=== PATIENT | male | born 1945 | race African-American/Black ===

== ENCOUNTER 2021-07-11 13:58 | Inpatient (IN) | payer MEDICARE, BC ==
[2021-07-11] VITALS (18 sets, daily range): BP systolic 101–141; BP diastolic 60–87
[~2021-07-11] VITALS: Ht 188 cm; Wt 83.0 kg
[2021-07-11] MEDS ORDERED: SODIUM CHLORIDE 0.9% 1,000 ML IV ONE (14:30)
[2021-07-11] MEDS ORDERED: NICARDIPINE 40MG/200ML PREMIX 200 ML IV STA (14:51)
[2021-07-11] MEDS ORDERED: DEXAMETHASONE 4MG/ML 1ML VIAL IV ONE (15:00)
[2021-07-11] MEDS ORDERED: MANNITOL 20% (20GM/100ML) BAG 500ML PREMIX IV ONE (15:00)
[2021-07-11] MEDS ORDERED: LABETALOL 5MG/ML SYR 20 MG/4 ML SYRINGE IV ONE (15:00)
[2021-07-11 15:03] LABS: BASOPHILS % 0.1 % (0.0-2.0); HEMATOCRIT. 43.6 % (42.0-52.0); HEMOGLOBIN. 14.8 g/dL (14.0-18.0); LYMPHOCYTES % 7.6 % (20.0-50.0); MEAN CORPUSCULAR HEMOGLOBIN 32.4 pg (28.0-32.0); MEAN CORPUSCULAR VOLUME 95.4 fL (80.0-94.0); MEAN PLATELET VOLUME 8.9 fl (7.4-10.4); MONOCYTES % 5.5 % (2.0-8.0); NEUTROPHILS % 86.8 % (40.0-76.0); PLATELET 146 x1000/uL (130-400); RED BLOOD CELL COUNT 4.57 mill/uL (4.7-6.1); RED CELL DISTRIBUTION WIDTH 13.8 % (11.6-14.6)
[2021-07-11 15:08] LABS: CHLORIDE 104 mEq/L (98-107)
[2021-07-11 15:10] LABS: INR 1.1; PROTHROMBIN TIME 11.4 sec (9.6-11.0)
[2021-07-11] MEDS ORDERED: IOHEXOL-350 100 ML BOTTLE ONE (15:10)
[2021-07-11 15:14] LABS: ETHANOL BLOOD < 10 mg/dL
[2021-07-11] MEDS ORDERED: MANNITOL 20% 125 ML IV NR (15:15)
[2021-07-11 15:19] LABS: LDL CHOLESTEROL 91 mg/dL (5-100)
[2021-07-11] MEDS ORDERED: LEVETIRACETAM 500MG PREMIX 100 ML IV SCH (18:45)
[2021-07-11] MEDS ORDERED: NICARDIPINE 50 MG in SODIUM CHLORIDE 0.9% 230 ML IV PRN ×2 (18:45→19:15)
[2021-07-11] MEDS ORDERED: NITROGLYCERIN 0.4MG TABLET SL SL PRN (18:45)
[2021-07-11] MEDS ORDERED: DEXT 5%/LACTATED RINGERS 1,000 ML IV SCH (18:45)
[2021-07-11] MEDS ORDERED: IPRATROPIUM/ALBUTEROL 0.5-3(2.5)MG/3ML NEB NEB PRN (18:45)
[2021-07-11] MEDS ORDERED: ONDANSETRON HCL 4MG/2ML INJ IV PRN (18:45)
[2021-07-11] MEDS ORDERED: ACETAMINOPHEN 650MG SUPP PR PRN ×2 (18:45)
[2021-07-11 19:17] LABS: T4 FREE 1.06 ng/dL (0.76-1.46)
[2021-07-11] MEDS ORDERED: NICARDIPINE 100 MG in SODIUM CHLORIDE 0.9% 60 ML IV PRN (19:30)
[2021-07-11 19:47] LABS: VITAMIN B12 SERUM 1104 pg/mL (211-911)
[2021-07-11 19:51] LABS: FOLIC ACID (FOLATE) SERUM > 20.00 ng/mL (>5.38)
[2021-07-11] MEDS: NICARDIPINE 100 MG in SODIUM CHLORIDE 0.9% 60 ML IV PRN (21:33)
[2021-07-11] MEDS: LEVETIRACETAM 500MG PREMIX 100 ML IV SCH (22:00)
[2021-07-12] VITALS (97 sets, daily range): BP systolic 97–162; BP diastolic 50–103
[2021-07-12] MEDS: DEXAMETHASONE 4MG/ML 1ML VIAL IV SCH ×6 (00:52→17:46)
[2021-07-12 05:20] LABS: HEMOGLOBIN. 14.7 g/dL (14.0-18.0)
[2021-07-12 05:21] LABS: HEMATOCRIT. 42.2 % (42.0-52.0); MEAN CORPUSCULAR HEMOGLOBIN 32.7 pg (28.0-32.0); MEAN CORPUSCULAR VOLUME 93.8 fL (80.0-94.0); MEAN PLATELET VOLUME 8.9 fl (7.4-10.4); PLATELET 146 x1000/uL (130-400)
[2021-07-12 05:27] LABS: CHLORIDE 109 mEq/L (98-107)
[2021-07-12 05:39] LABS: LDL CHOLESTEROL 96 mg/dL (5-100); PHOSPHORUS 2.5 mg/dL (2.5-4.9)
[2021-07-12 05:41] LABS: HDL CHOLESTEROL 56 mg/dL (40-59)
[2021-07-12] MEDS: DEXT 5%/LACTATED RINGERS 1,000 ML IV SCH ×2 (06:28→12:39)
[2021-07-12] MEDS ORDERED: VECURONIUM BROMIDE 10 MG/VIAL IV NR (09:00)
[2021-07-12] MEDS: PANTOPRAZOLE SODIUM 40 MG/VIAL IV SCH (09:40)
[2021-07-12] MEDS: LEVETIRACETAM 500MG PREMIX 100 ML IV SCH ×2 (09:41→20:43)
[2021-07-12] MEDS ORDERED: ASPI-1497 PO (10:56)
[2021-07-12] MEDS ORDERED: LISI20TA31 MT (10:56)
[2021-07-12] MEDS: AMLODIPINE 5MG TABLET PO SCH ×2 (12:39→20:44)
[2021-07-12] MEDS: LISINOPRIL 20MG TABLET PO SCH ×2 (12:39→20:44)
[2021-07-12] MEDS: NICARDIPINE 100 MG in SODIUM CHLORIDE 0.9% 60 ML IV PRN (13:35)
[2021-07-12 14:54] LABS: PLATELET ESTIMATE NORMAL
[2021-07-13] VITALS (97 sets, daily range): BP systolic 108–157; BP diastolic 51–110
[2021-07-13] MEDS: DEXAMETHASONE 4MG/ML 1ML VIAL IV SCH ×4 (00:23→17:00)
[2021-07-13] MEDS: DEXT 5%/LACTATED RINGERS 1,000 ML IV SCH ×2 (05:57→22:34)
[2021-07-13] MEDS: LEVETIRACETAM 500MG PREMIX 100 ML IV SCH ×2 (08:51→22:33)
[2021-07-13] MEDS: PANTOPRAZOLE SODIUM 40 MG/VIAL IV SCH (08:51)
[2021-07-13] MEDS: LISINOPRIL 20MG TABLET PO SCH ×2 (08:52→20:16)
[2021-07-13] MEDS: AMLODIPINE 5MG TABLET PO SCH ×2 (08:52→20:16)
[2021-07-13] MEDS ORDERED: HYDRALAZINE 20MG/ML VIAL IV PRN (14:15)
[2021-07-13] MEDS: CLONIDINE 0.1MG TABLET PO PRN (17:00)
[2021-07-13 19:20] LABS: *BARBITURATES SCREEN URINE NEGATIVE (NEGATIVE)
[2021-07-13 19:21] LABS: *AMPHETAMINES SCREEN URINE NEGATIVE (NEGATIVE); *BENZODIAZEPINES SCREEN URINE NEGATIVE (NEGATIVE); *COCAINE SCREEN URINE NEGATIVE (NEGATIVE); METHADONE URINE SCREEN NEGATIVE (NEGATIVE); OPIATES URINE SCREEN NEGATIVE (NEGATIVE); PHENCYCLIDINE URINE SCREEN NEGATIVE (NEGATIVE)
[2021-07-13 19:22] LABS: CANNABINOID URINE SCREEN NEGATIVE (NEGATIVE)
[2021-07-14] VITALS (44 sets, daily range): BP systolic 77–153; BP diastolic 60–92
[2021-07-14] MEDS: DEXAMETHASONE 4MG/ML 1ML VIAL IV SCH ×5 (00:17→23:30)
[2021-07-14] MEDS: LISINOPRIL 20MG TABLET PO SCH ×3 (08:18→23:31)
[2021-07-14] MEDS: LEVETIRACETAM 500MG PREMIX 100 ML IV SCH ×2 (08:18→21:17)
[2021-07-14] MEDS: PANTOPRAZOLE SODIUM 40 MG/VIAL IV SCH (08:18)
[2021-07-14] MEDS: AMLODIPINE 5MG TABLET PO SCH ×2 (08:19→22:07)
[2021-07-14] MEDS: METOPROLOL TARTRATE 25MG TABLET PO SCH ×2 (11:10→22:07)
[2021-07-14] MEDS: CLONIDINE 0.1MG TABLET PO PRN (12:52)
[2021-07-14] MEDS ORDERED: HYDRALAZINE 20MG/ML VIAL IV NR (19:30)
[2021-07-15] VITALS: BP 149/84
[2021-07-15 04:00] VITALS: BP 153/88
[2021-07-15] MEDS: DEXAMETHASONE 4MG/ML 1ML VIAL IV SCH ×3 (05:04→17:19)
[2021-07-15] MEDS: CLONIDINE 0.1MG TABLET PO PRN ×2 (05:04→17:19)
[2021-07-15 08:00] VITALS: BP 149/90
[2021-07-15] MEDS: LEVETIRACETAM 500MG PREMIX 100 ML IV SCH (09:03)
[2021-07-15] MEDS: PANTOPRAZOLE SODIUM 40 MG/VIAL IV SCH (09:05)
[2021-07-15] MEDS: AMLODIPINE 5MG TABLET PO SCH ×2 (09:05→20:02)
[2021-07-15] MEDS: LISINOPRIL 20MG TABLET PO SCH ×2 (09:05→20:02)
[2021-07-15] MEDS: METOPROLOL TARTRATE 25MG TABLET PO SCH ×2 (09:05→20:03)
[2021-07-15 12:00] VITALS: BP 140/87
[2021-07-15 16:00] VITALS: BP 147/91
[2021-07-15 20:00] VITALS: BP 161/93
[2021-07-15] MEDS: LEVETIRACETAM 500MG TABLET PO SCH (20:02)
[2021-07-16] VITALS: BP 140/89
[2021-07-16 04:00] VITALS: BP 148/93
[2021-07-16] MEDS: CLONIDINE 0.1MG TABLET PO PRN (04:16)
[2021-07-16 08:00] VITALS: BP 126/85
[2021-07-16] MEDS ORDERED: FAMOTIDINE 20MG TABLET PO SCH (09:00)
[2021-07-16] MEDS: LEVETIRACETAM 500MG TABLET PO SCH (09:29)
[2021-07-16] MEDS: AMLODIPINE 5MG TABLET PO SCH (09:29)
[2021-07-16] MEDS: LISINOPRIL 20MG TABLET PO SCH (09:29)
[2021-07-16] MEDS: METOPROLOL TARTRATE 25MG TABLET PO SCH (09:30)
[2021-07-16 15:04] VITALS: BP 136/83
== END 2021-07-16 16:45 | DRG 65 ==
LOC: ER 14:25 → MICUNO 15:21 → EDBEDREQ 15:30 → EDBEDREQSVC 15:30 → ENRESERV 18:36 → 8WST 07-14 15:44
PROVIDERS: ADMIT Internal Medicine; ATTEND Internal Medicine
DX: I61.4 Nontraumatic intracerebral hemorrhage in cerebellum (principal); I16.1 Hypertensive emergency; E87.1 Hypo-osmolality and hyponatremia; E44.0 Moderate protein-calorie malnutrition; R47.01 Aphasia; I10 Essential (primary) hypertension; R47.81 Slurred speech; R79.89 Other specified abnormal findings of blood chemistry; R27.8 Other lack of coordination; R26.2 Difficulty in walking, not elsewhere classified; R74.01 Elevation of levels of liver transaminase levels; R13.10 Dysphagia, unspecified; R47.1 Dysarthria and anarthria; Z68.23 Body mass index [BMI] 23.0-23.9, adult
CPT/HCPCS: 36415; 70496; 70498; 71045; 80053; 80061; 80305; 80320; 82607; 82746; 82962; 83036; 83540; 83550; 83721; 83735; 83880; 84100; 84439; 84443; 84484; 85025; 92523; 92610; 93005; 97162; 99291; C9113; J0360; J1100; J1953; J3490; J7030; J7040; J7050; Q9967; A4315; G0480

== ENCOUNTER 2021-07-16 16:50 | Inpatient (IN) | payer MEDICARE, BC ==
[~2021-07-16] VITALS: Ht 180.3 cm; Wt 83.9 kg
[~2021-07-16 16:50] MED LIST: ASPI-1497 PO; LISI20TA31 MT
[2021-07-16] MEDS ORDERED: IPRATROPIUM/ALBUTEROL 0.5-3(2.5)MG/3ML NEB HHN PRN (18:00)
[2021-07-16] MEDS ORDERED: ACETAMINOPHEN 650MG SUPP PR PRN (18:00)
[2021-07-16] MEDS ORDERED: ACETAMINOPHEN 325MG TABLET PO PRN (18:00)
[2021-07-16] MEDS ORDERED: NITROGLYCERIN 0.4MG TABLET SL SL PRN (18:00)
[2021-07-16] MEDS ORDERED: ONDANSETRON HCL 4MG TABLET PO PRN (18:00)
[2021-07-16] MEDS ORDERED: CLONIDINE 0.1MG TABLET PO PRN (18:00)
[2021-07-16 19:55] VITALS: BP 157/86
[2021-07-16 20:00] VITALS: BP 157/86
[2021-07-16] MEDS: FAMOTIDINE 20MG TABLET PO SCH (20:25)
[2021-07-16] MEDS: LISINOPRIL 20MG TABLET PO SCH (20:25)
[2021-07-16] MEDS: AMLODIPINE 5MG TABLET PO SCH (20:25)
[2021-07-16] MEDS: LEVETIRACETAM 500MG TABLET PO SCH (20:25)
[2021-07-16] MEDS: METOPROLOL TARTRATE 25MG TABLET PO SCH (21:00)
[2021-07-16 21:35] VITALS: BP 157/84
[2021-07-16] MEDS: HYDRALAZINE HCL 10MG TABLET PO PRN (21:43)
[2021-07-16 23:10] VITALS: BP 127/84
[2021-07-17] MEDS ORDERED: DOCUSATE SODIUM 100MG CAPSULE PO NR (06:00)
[2021-07-17 07:19] LABS: BASOPHILS % 0.2 % (0.0-2.0); EOSINOPHILS % 0.2 % (0.0-5.0); HEMATOCRIT. 51.9 % (42.0-52.0); HEMOGLOBIN. 17.4 g/dL (14.0-18.0); LYMPHOCYTES % 19.9 % (20.0-50.0); MEAN CORPUSCULAR HEMOGLOBIN 32.1 pg (28.0-32.0); MEAN CORPUSCULAR VOLUME 95.8 fL (80.0-94.0); MEAN PLATELET VOLUME 9.5 fl (7.4-10.4); MONOCYTES % 10.9 % (2.0-8.0); NEUTROPHILS % 68.8 % (40.0-76.0); PLATELET 155 x1000/uL (130-400); RED BLOOD CELL COUNT 5.42 mill/uL (4.7-6.1); RED CELL DISTRIBUTION WIDTH 13.2 % (11.6-14.6)
[2021-07-17 08:29] VITALS: BP 143/86
[2021-07-17 08:48] LABS: CHLORIDE 104 mEq/L (98-107)
[2021-07-17 09:00] VITALS: BP 157/86
[2021-07-17] MEDS: LEVETIRACETAM 500MG TABLET PO SCH ×2 (09:26→21:01)
[2021-07-17] MEDS: FAMOTIDINE 20MG TABLET PO SCH ×2 (09:26→21:01)
[2021-07-17] MEDS: AMLODIPINE 5MG TABLET PO SCH ×2 (09:27→20:59)
[2021-07-17] MEDS: BISACODYL 5MG TABLET PO PRN (09:27)
[2021-07-17] MEDS: LISINOPRIL 20MG TABLET PO SCH ×2 (09:27→21:01)
[2021-07-17] MEDS: METOPROLOL TARTRATE 25MG TABLET PO SCH ×2 (09:28→21:00)
[2021-07-17] MEDS: HYDRALAZINE HCL 10MG TABLET PO PRN (17:45)
[2021-07-17 17:57] VITALS: BP 164/90
[2021-07-17] MEDS: HYDRALAZINE HCL 50MG TABLET PO SCH (21:02)
[2021-07-18] MEDS: HYDRALAZINE HCL 50MG TABLET PO SCH ×3 (05:51→21:16)
[2021-07-18] MEDS: BISACODYL 5MG TABLET PO PRN (05:51)
[2021-07-18 07:46] VITALS: BP 135/83
[2021-07-18] MEDS: METOPROLOL TARTRATE 25MG TABLET PO SCH ×2 (08:52→21:17)
[2021-07-18] MEDS: FAMOTIDINE 20MG TABLET PO SCH ×2 (08:52→21:15)
[2021-07-18] MEDS: LISINOPRIL 20MG TABLET PO SCH ×2 (08:52→21:16)
[2021-07-18] MEDS: LEVETIRACETAM 500MG TABLET PO SCH ×2 (08:52→21:16)
[2021-07-18] MEDS: AMLODIPINE 5MG TABLET PO SCH ×2 (08:52→21:16)
[2021-07-18] MEDS: LACTULOSE 20G/30ML UDC PO SCH ×2 (16:55→21:12)
[2021-07-18 20:00] VITALS: BP 139/80
[2021-07-18] MEDS ORDERED: NA PHOS,M-B/NA PHOS,DI-BA ENEMA 118ML PR NR (23:00)
[2021-07-19] MEDS: LACTULOSE 20G/30ML UDC PO SCH
[2021-07-19] MEDS: HYDRALAZINE HCL 50MG TABLET PO SCH ×3 (06:20→21:04)
[2021-07-19 07:31] VITALS: BP 130/79
[2021-07-19] MEDS: POLYETHYLENE GLYCOL 3350 (17GM) 1 DOSE PACK PO SCH (09:16)
[2021-07-19] MEDS: LEVETIRACETAM 500MG TABLET PO SCH ×2 (09:16→20:42)
[2021-07-19] MEDS: AMLODIPINE 5MG TABLET PO SCH ×2 (09:17→20:43)
[2021-07-19] MEDS: FAMOTIDINE 20MG TABLET PO SCH ×2 (09:17→20:42)
[2021-07-19] MEDS: METOPROLOL TARTRATE 25MG TABLET PO SCH ×2 (09:17→20:43)
[2021-07-19] MEDS: LISINOPRIL 20MG TABLET PO SCH ×2 (09:17→20:43)
[2021-07-19 20:00] VITALS: BP 127/76
[2021-07-20] MEDS: HYDRALAZINE HCL 50MG TABLET PO SCH ×3 (05:50→21:26)
[2021-07-20 07:54] VITALS: BP 126/75
[2021-07-20] MEDS: FAMOTIDINE 20MG TABLET PO SCH ×2 (08:55→21:25)
[2021-07-20] MEDS: METOPROLOL TARTRATE 25MG TABLET PO SCH ×2 (08:56→21:25)
[2021-07-20] MEDS: LISINOPRIL 20MG TABLET PO SCH ×2 (08:56→21:25)
[2021-07-20] MEDS: LEVETIRACETAM 500MG TABLET PO SCH ×2 (08:56→21:24)
[2021-07-20] MEDS: AMLODIPINE 5MG TABLET PO SCH ×2 (08:56→21:25)
[2021-07-20] MEDS: POLYETHYLENE GLYCOL 3350 (17GM) 1 DOSE PACK PO SCH (08:56)
[2021-07-20] MEDS ORDERED: BISACODYL 10MG SUPP PR PRN (14:15)
[2021-07-20 14:16] VITALS: BP 128/71
[2021-07-20] MEDS: LACTULOSE 20G/30ML UDC PO SCH ×2 (18:23→21:24)
[2021-07-20 20:00] VITALS: BP 126/75
[2021-07-21] MEDS: HYDRALAZINE HCL 50MG TABLET PO SCH ×3 (05:31→21:12)
[2021-07-21 08:26] VITALS: BP 126/77
[2021-07-21] MEDS: METOPROLOL TARTRATE 25MG TABLET PO SCH ×2 (11:15→20:34)
[2021-07-21] MEDS: LISINOPRIL 20MG TABLET PO SCH ×2 (11:15→20:34)
[2021-07-21] MEDS: FAMOTIDINE 20MG TABLET PO SCH ×2 (11:16→20:34)
[2021-07-21] MEDS: LEVETIRACETAM 500MG TABLET PO SCH ×2 (11:16→20:33)
[2021-07-21] MEDS: AMLODIPINE 5MG TABLET PO SCH ×2 (11:16→20:34)
[2021-07-21] MEDS: LACTULOSE 20G/30ML UDC PO SCH ×4 (11:16→20:33)
[2021-07-21] MEDS: POLYETHYLENE GLYCOL 3350 (17GM) 1 DOSE PACK PO SCH (11:17)
[2021-07-21] MEDS ORDERED: NA PHOS,M-B/NA PHOS,DI-BA ENEMA 118ML PR NR (13:30)
[2021-07-21 20:00] VITALS: BP 133/81
[2021-07-22] MEDS: HYDRALAZINE HCL 50MG TABLET PO SCH ×3 (06:11→22:56)
[2021-07-22 08:00] VITALS: BP_SYST 125; BP_SYST 135; BP_DIAS 76; BP_DIAS 79
[2021-07-22] MEDS: POLYETHYLENE GLYCOL 3350 (17GM) 1 DOSE PACK PO SCH (09:00)
[2021-07-22] MEDS: LISINOPRIL 20MG TABLET PO SCH ×2 (09:43→21:00)
[2021-07-22] MEDS: LEVETIRACETAM 500MG TABLET PO SCH ×2 (09:43→21:04)
[2021-07-22] MEDS: FAMOTIDINE 20MG TABLET PO SCH ×2 (09:43→21:06)
[2021-07-22] MEDS: AMLODIPINE 5MG TABLET PO SCH ×2 (09:43→21:06)
[2021-07-22] MEDS: METOPROLOL TARTRATE 25MG TABLET PO SCH ×2 (09:46→21:05)
[2021-07-22 12:47] VITALS: BP 117/71
[2021-07-22 20:00] VITALS: BP 131/78
[2021-07-23] MEDS: HYDRALAZINE HCL 50MG TABLET PO SCH ×3 (05:50→22:00)
[2021-07-23 07:44] VITALS: BP_SYST 117; BP_SYST 124; BP_DIAS 82; BP_DIAS 84
[2021-07-23] MEDS: POLYETHYLENE GLYCOL 3350 (17GM) 1 DOSE PACK PO SCH (08:36)
[2021-07-23] MEDS: AMLODIPINE 5MG TABLET PO SCH ×2 (08:36→21:29)
[2021-07-23] MEDS: LEVETIRACETAM 500MG TABLET PO SCH ×2 (08:36→21:28)
[2021-07-23] MEDS: METOPROLOL TARTRATE 25MG TABLET PO SCH ×2 (08:36→21:29)
[2021-07-23] MEDS: LISINOPRIL 20MG TABLET PO SCH ×2 (08:36→21:00)
[2021-07-23] MEDS: FAMOTIDINE 20MG TABLET PO SCH ×2 (09:00→21:29)
[2021-07-23 11:53] LABS: HEMATOCRIT. 48.1 % (42.0-52.0); HEMOGLOBIN. 17.3 g/dL (14.0-18.0); MEAN CORPUSCULAR HEMOGLOBIN 33.8 pg (28.0-32.0); MEAN CORPUSCULAR VOLUME 94.2 fL (80.0-94.0); MEAN PLATELET VOLUME 8.4 fl (7.4-10.4); PLATELET 187 x1000/uL (130-400); RED CELL DISTRIBUTION WIDTH 13.5 % (11.6-14.6)
[2021-07-23 12:24] LABS: CHLORIDE 102 mEq/L (98-107)
[2021-07-23 16:47] LABS: PLATELET ESTIMATE NORMAL
[2021-07-23 20:00] VITALS: BP 130/80
[2021-07-24] MEDS: HYDRALAZINE HCL 50MG TABLET PO SCH ×3 (06:00→22:00)
[2021-07-24 08:26] VITALS: BP 124/71
[2021-07-24] MEDS: POLYETHYLENE GLYCOL 3350 (17GM) 1 DOSE PACK PO SCH (09:00)
[2021-07-24] MEDS: METOPROLOL TARTRATE 25MG TABLET PO SCH ×2 (09:00→21:00)
[2021-07-24] MEDS: AMLODIPINE 5MG TABLET PO SCH ×2 (09:11→21:24)
[2021-07-24] MEDS: FAMOTIDINE 20MG TABLET PO SCH ×2 (09:12→23:11)
[2021-07-24] MEDS: LISINOPRIL 20MG TABLET PO SCH ×2 (09:12→21:00)
[2021-07-24] MEDS: LEVETIRACETAM 500MG TABLET PO SCH ×2 (09:12→21:23)
[2021-07-24 13:22] VITALS: BP 103/76
[2021-07-24 14:08] LABS: 25-HYDROXY VITAMIN D3 29 ng/mL (.)
[2021-07-24] MEDS: ERGOCALCIFEROL 50000UNITS CAPSULE PO SCH (16:33)
[2021-07-24 20:00] VITALS: BP 129/82
[2021-07-25] MEDS: HYDRALAZINE HCL 50MG TABLET PO SCH ×3 (06:00→21:35)
[2021-07-25] MEDS: POLYETHYLENE GLYCOL 3350 (17GM) 1 DOSE PACK PO SCH (08:29)
[2021-07-25] MEDS: AMLODIPINE 5MG TABLET PO SCH ×2 (08:29→20:28)
[2021-07-25] MEDS: FAMOTIDINE 20MG TABLET PO SCH ×2 (08:29→20:28)
[2021-07-25] MEDS: LEVETIRACETAM 500MG TABLET PO SCH ×2 (08:29→20:29)
[2021-07-25] MEDS: LISINOPRIL 20MG TABLET PO SCH ×2 (08:29→20:28)
[2021-07-25 09:22] VITALS: BP 115/72
[2021-07-25] MEDS: METOPROLOL TARTRATE 25MG TABLET PO SCH ×2 (09:48→20:28)
[2021-07-25] MEDS: BISACODYL 5MG TABLET PO PRN (13:12)
[2021-07-25 13:14] VITALS: BP 129/76
[2021-07-25 20:00] VITALS: BP 121/68
[2021-07-25] MEDS ORDERED: NA PHOS,M-B/NA PHOS,DI-BA ENEMA 118ML PR NR (20:00)
[2021-07-26] MEDS: HYDRALAZINE HCL 50MG TABLET PO SCH ×3 (05:18→21:11)
[2021-07-26 07:29] VITALS: BP 110/71
[2021-07-26] MEDS: POLYETHYLENE GLYCOL 3350 (17GM) 1 DOSE PACK PO SCH (09:00)
[2021-07-26] MEDS: LISINOPRIL 20MG TABLET PO SCH ×2 (09:00→20:09)
[2021-07-26] MEDS: METOPROLOL TARTRATE 25MG TABLET PO SCH ×2 (09:00→20:10)
[2021-07-26] MEDS: AMLODIPINE 5MG TABLET PO SCH ×2 (09:00→20:09)
[2021-07-26] MEDS: LEVETIRACETAM 500MG TABLET PO SCH ×2 (09:00→20:10)
[2021-07-26] MEDS: FAMOTIDINE 20MG TABLET PO SCH ×2 (09:45→20:10)
[2021-07-26 20:00] VITALS: BP 120/75
[2021-07-27] MEDS: HYDRALAZINE HCL 50MG TABLET PO SCH ×3 (05:25→21:04)
[2021-07-27 07:57] VITALS: BP 112/71
[2021-07-27] MEDS: LISINOPRIL 20MG TABLET PO SCH ×3 (09:00→21:00)
[2021-07-27] MEDS: METOPROLOL TARTRATE 25MG TABLET PO SCH ×3 (09:00→21:00)
[2021-07-27] MEDS: POLYETHYLENE GLYCOL 3350 (17GM) 1 DOSE PACK PO SCH (09:00)
[2021-07-27] MEDS: FAMOTIDINE 20MG TABLET PO SCH ×2 (10:05→21:02)
[2021-07-27] MEDS: AMLODIPINE 5MG TABLET PO SCH ×2 (10:06→21:00)
[2021-07-27] MEDS: LEVETIRACETAM 500MG TABLET PO SCH ×2 (10:06→21:02)
[2021-07-27 17:19] LABS: CHLORIDE 102 mEq/L (98-107)
[2021-07-27 17:29] LABS: HEMATOCRIT. 45.6 % (42.0-52.0); HEMOGLOBIN. 15.5 g/dL (14.0-18.0); MEAN CORPUSCULAR HEMOGLOBIN 32.9 pg (28.0-32.0); MEAN CORPUSCULAR VOLUME 96.6 fL (80.0-94.0); MEAN PLATELET VOLUME 8.2 fl (7.4-10.4); PLATELET 200 x1000/uL (130-400); RED BLOOD CELL COUNT 4.73 mill/uL (4.7-6.1); RED CELL DISTRIBUTION WIDTH 13.3 % (11.6-14.6)
[2021-07-27 20:00] VITALS: BP 108/65
[2021-07-27 22:21] LABS: PLATELET ESTIMATE NORMAL
[2021-07-28] MEDS: HYDRALAZINE HCL 50MG TABLET PO SCH ×3 (05:11→21:16)
[2021-07-28 08:00] VITALS: BP 125/79
[2021-07-28] MEDS: POLYETHYLENE GLYCOL 3350 (17GM) 1 DOSE PACK PO SCH (09:00)
[2021-07-28] MEDS: METOPROLOL TARTRATE 25MG TABLET PO SCH ×2 (09:04→20:32)
[2021-07-28] MEDS: AMLODIPINE 5MG TABLET PO SCH ×2 (09:05→20:32)
[2021-07-28] MEDS: LISINOPRIL 20MG TABLET PO SCH ×2 (09:05→20:32)
[2021-07-28] MEDS: LEVETIRACETAM 500MG TABLET PO SCH ×2 (09:06→20:29)
[2021-07-28] MEDS: FAMOTIDINE 20MG TABLET PO SCH ×2 (09:06→20:29)
[2021-07-28 20:00] VITALS: BP 123/73
[2021-07-29] MEDS: BISACODYL 5MG TABLET PO PRN (05:21)
[2021-07-29] MEDS: HYDRALAZINE HCL 50MG TABLET PO SCH ×3 (05:22→22:00)
[2021-07-29] MEDS ORDERED: NA PHOS,M-B/NA PHOS,DI-BA ENEMA 118ML PR PRN (06:45)
[2021-07-29 07:54] VITALS: BP 129/69
[2021-07-29] MEDS: LEVETIRACETAM 500MG TABLET PO SCH ×2 (09:18→21:40)
[2021-07-29] MEDS: AMLODIPINE 5MG TABLET PO SCH ×2 (09:19→21:42)
[2021-07-29] MEDS: FAMOTIDINE 20MG TABLET PO SCH ×2 (09:19→21:41)
[2021-07-29] MEDS: LISINOPRIL 20MG TABLET PO SCH ×2 (09:19→21:41)
[2021-07-29] MEDS: POLYETHYLENE GLYCOL 3350 (17GM) 1 DOSE PACK PO SCH (09:19)
[2021-07-29] MEDS: METOPROLOL TARTRATE 25MG TABLET PO SCH ×2 (09:19→21:00)
[2021-07-29] MEDS ORDERED: BISACODYL 10MG SUPP PR PRN (10:45)
[2021-07-29] MEDS: LACTULOSE 20G/30ML UDC PO SCH ×3 (11:42→18:45)
[2021-07-29 20:00] VITALS: BP 132/65
[2021-07-30] MEDS: HYDRALAZINE HCL 50MG TABLET PO SCH ×3 (05:23→22:00)
[2021-07-30 07:54] VITALS: BP 123/77
[2021-07-30] MEDS: AMLODIPINE 5MG TABLET PO SCH ×2 (08:41→20:45)
[2021-07-30] MEDS: LEVETIRACETAM 500MG TABLET PO SCH ×2 (08:41→20:44)
[2021-07-30] MEDS: FAMOTIDINE 20MG TABLET PO SCH ×2 (08:41→20:44)
[2021-07-30] MEDS: METOPROLOL TARTRATE 25MG TABLET PO SCH ×2 (08:42→21:00)
[2021-07-30] MEDS: LISINOPRIL 20MG TABLET PO SCH ×2 (08:42→21:00)
[2021-07-30] MEDS: POLYETHYLENE GLYCOL 3350 (17GM) 1 DOSE PACK PO SCH (08:43)
[2021-07-30 20:00] VITALS: BP 117/76
[2021-07-31] MEDS: HYDRALAZINE HCL 50MG TABLET PO SCH ×2 (05:44→14:00)
[2021-07-31] MEDS: ERGOCALCIFEROL 50000UNITS CAPSULE PO SCH (08:18)
[2021-07-31] MEDS: LISINOPRIL 20MG TABLET PO SCH (08:18)
[2021-07-31] MEDS: FAMOTIDINE 20MG TABLET PO SCH (08:19)
[2021-07-31] MEDS: POLYETHYLENE GLYCOL 3350 (17GM) 1 DOSE PACK PO SCH ×2 (08:19→09:00)
[2021-07-31] MEDS: LEVETIRACETAM 500MG TABLET PO SCH (08:19)
[2021-07-31] MEDS: METOPROLOL TARTRATE 25MG TABLET PO SCH (08:24)
[2021-07-31] MEDS: AMLODIPINE 5MG TABLET PO SCH (08:25)
[2021-07-31 08:30] VITALS: BP 112/78
[2021-07-31 13:34] VITALS: BP 130/72
== END 2021-07-31 16:27 | disposition home health service (06) | DRG 65 ==
PROVIDERS: ADMIT Physical Medicine & Rehabilitation Spinal Cord Injury Medicine; ATTEND Internal Medicine
DX: I61.4 Nontraumatic intracerebral hemorrhage in cerebellum (principal); R47.01 Aphasia; E44.0 Moderate protein-calorie malnutrition; E87.1 Hypo-osmolality and hyponatremia; R47.1 Dysarthria and anarthria; I10 Essential (primary) hypertension; R74.01 Elevation of levels of liver transaminase levels; R77.8 Other specified abnormalities of plasma proteins; R53.81 Other malaise; F01.50 Vascular dementia, unspecified severity, without behavioral disturbance, psychotic disturbance, mood disturbance, and anxiety; F32.9 Major depressive disorder, single episode, unspecified; F41.9 Anxiety disorder, unspecified; E55.9 Vitamin D deficiency, unspecified; R13.10 Dysphagia, unspecified; R27.8 Other lack of coordination; R26.9 Unspecified abnormalities of gait and mobility; Z79.899 Other long term (current) drug therapy; Z82.49 Family history of ischemic heart disease and other diseases of the circulatory system; Z68.25 Body mass index [BMI] 25.0-25.9, adult
CPT/HCPCS: 36415; 80053; 82306; 84134; 85025; 92523; 92610; 93970; 97110; 97112; 97116; 97150; 97162; 97166; 97530; 97535; Q0162